=== PATIENT | female | born 1990 | race Caucasian/White ===

== ENCOUNTER → 2017-01-16 07:51 | Outpatient (CLI) | payer BC ==
[2013-09-08 14:57] VITALS: BMI 23.9
[~2017-01-16 07:51] MED LIST: AMBIEN5 MG PO; DONNATAL E16.2 MG/5 PO; NORCO 10/325 TA1 TA1 PO; PRILOSEC20 MG PO
== END | disposition home or self-care (01) ==
LOC: D.US 07:51
DX: R10.2 Pelvic and perineal pain (principal)

== ENCOUNTER 2017-03-03 16:45 | Emergency (ER) | payer BC ==
[2017-03-03 18:01] LABS: APPEARANCE CLEAR (CLEAR); BILIRUBIN NEGATIVE (NEGATIVE); COLOR YELLOW (YELLOW); GLUCOSE NEGATIVE (NEGATIVE); KETONE NEGATIVE (NEGATIVE); LEUKOCYTE ESTERASE NEGATIVE (NEGATIVE); NITRITE NEGATIVE (NEGATIVE); PROTEIN NEGATIVE (NEGATIVE); UROBILINOGEN NORMAL (NORMAL)
== END 2017-03-03 18:49 | disposition home or self-care (01) ==
LOC: D.ER
PROVIDERS: Physician Assistant Medical
DX: O26.892 Other specified pregnancy related conditions, second trimester (principal); Z3A.17 17 weeks gestation of pregnancy; R33.9 Retention of urine, unspecified; F17.200 Nicotine dependence, unspecified, uncomplicated; K58.9 Irritable bowel syndrome, unspecified

== ENCOUNTER 2017-05-27 15:30 | Day surgery (SDC) | payer BC ==
[2013-09-08 14:57] VITALS: BMI 23.9
[2017-05-27 13:29] LABS: APPEARANCE HAZY (CLEAR); BILIRUBIN NEGATIVE (NEGATIVE); COLOR YELLOW (YELLOW); GLUCOSE NEGATIVE (NEGATIVE); KETONE SMALL mg/dL (NEGATIVE); LEUKOCYTE ESTERASE TRACE (NEGATIVE); NITRITE NEGATIVE (NEGATIVE); PROTEIN NEGATIVE (NEGATIVE); SPECIFIC GRAVITY 1.025 (1.005-1.020); UROBILINOGEN NORMAL (NORMAL)
[2017-05-27 13:30] LABS: BACTERIA MODERATE /hpf (NONE SEEN); EPITHELIAL CELLS 0-5 /hpf (0-5); MUCUS >1+ /lpf (NONE SEEN); RED CELLS - URINE OCC /hpf (0-5); WHITE CELLS - URINE OCC /hpf (0-5)
[2017-05-27 13:31] LABS: TALC POWDER CRYSTALS RARE /hpf (NONE SEEN)
[2017-05-27 13:36] LABS: CALCIUM OXALATE CRYSTALS 0-5 /hpf (NONE SEEN)
[2017-05-27] MEDS ORDERED: AMBIEN10 MG PO (16:49)
[2017-05-27 18:14] LABS: BASOPHILS 0.2 % (0-2); EOSINOPHILS 3.2 % (0-7); HEMATOCRIT 31.8 % (36.0-48.0); HEMOGLOBIN 10.9 g/dL (12-16); IMMATURE GRANULOCYTES 0.6 % (0-5); LYMPHOCYTES 23.2 % (15-50); MCHC 34.3 g/dL (31.0-37.0); MCV 93.3 fL (80.0-100.0); MEAN PLATELET VOLUME 11.4 fL (7.4-10.4); MONOCYTES 7.7 % (2-11); NEUTROPHILS 65.1 % (40-80); RBC 3.41 10x6/uL (4.00-5.40); RDW 12.2 % (11.5-14.5); WBC 9.8 10x3/uL (4.8-10.8)
[2017-05-27 18:23] LABS: PLATELET COUNT 203 10x3/uL (130-400)
[2017-05-27 18:31] LABS: CALC OSMOLALITY 277 mosm/kg (275-300); CALCIUM 8.4 mg/dL (8.5-10.1); CHLORIDE - SERUM 107 mmol/L (98-107); CREATININE - SERUM 0.6 mg/dL (0.6-1.3); GLUCOSE 78 mg/dL (74-106); POTASSIUM - SERUM 3.7 mmol/L (3.5-5.1); SODIUM 141 mmol/L (136-145); UREA NITROGEN 7 mg/dL (7-18); eGFR NON AFRICAN AMERICAN > 90 mL/min (90-120)
--- NOTE | 2017-05-27 19:19 | NUR ---
ULTRASOUND USED INSTEAD OF X-RAY SINCE PATIENT 28WKS , RAMON.
--- NOTE | 2017-05-27 19:45 | NUR ---
PT ARRIVES TO LABOR AND DELIVERY ON STRETCHER WITH SURGERY STAFF. PT AMBULATES TO BR WITH NO ASSISTANCE.
== END 2017-05-27 20:35 | disposition home or self-care (01) ==
LOC: D.OPS 15:30 → D.LD 17:01 → D.OPS 20:35 → D.LD 20:53
PROVIDERS: Anesthesiology; Obstetrics & Gynecology
DX: O26.892 Other specified pregnancy related conditions, second trimester (principal); N13.30 Unspecified hydronephrosis; Z01.812 Encounter for preprocedural laboratory examination

== ENCOUNTER 2017-06-03 12:26 | Emergency (ER) | payer BC ==
[2013-09-08 14:57] VITALS: BMI 23.9
[~2017-06-03 12:26] MED LIST changes: +AMBIEN10 MG PO
[2017-06-03 13:23] LABS: APPEARANCE CLEAR (CLEAR); BACTERIA FEW /hpf (NONE SEEN); BILIRUBIN NEGATIVE (NEGATIVE); COLOR STRAW (YELLOW); EPITHELIAL CELLS 0-5 /hpf (0-5); GLUCOSE NEGATIVE (NEGATIVE); KETONE NEGATIVE (NEGATIVE); LEUKOCYTE ESTERASE TRACE (NEGATIVE); NITRITE NEGATIVE (NEGATIVE); PROTEIN NEGATIVE (NEGATIVE); UROBILINOGEN NORMAL (NORMAL); WHITE CELLS - URINE OCC /hpf (0-5)
[2017-06-03 14:11] LABS: BASOPHILS 0.2 % (0-2); EOSINOPHILS 4.8 % (0-7); HEMATOCRIT 31.4 % (36.0-48.0); HEMOGLOBIN 10.7 g/dL (12-16); IMMATURE GRANULOCYTES 1.1 % (0-5); LYMPHOCYTES 22.4 % (15-50); MCHC 34.1 g/dL (31.0-37.0); MEAN PLATELET VOLUME 11.8 fL (7.4-10.4); MONOCYTES 10.4 % (2-11); NEUTROPHILS 61.1 % (40-80); PLATELET COUNT 195 10x3/uL (130-400); RBC 3.34 10x6/uL (4.00-5.40); RDW 12.1 % (11.5-14.5); WBC 9.1 10x3/uL (4.8-10.8)
[2017-06-03 14:47] LABS: ALBUMIN 2.5 g/dL (3.4-5.0); ALKALINE PHOSPHATASE 71 U/L (46-116); ALT (SGPT) 21 U/L (10-68); BILIRUBIN - TOTAL 0.17 mg/dL (0.2-1.3); CALC OSMOLALITY 273 mosm/kg (275-300); CALCIUM 8.4 mg/dL (8.5-10.1); CARBON DIOXIDE 23.2 mmol/L (21.0-32.0); CHLORIDE - SERUM 106 mmol/L (98-107); CREATININE - SERUM 0.5 mg/dL (0.6-1.3); GLUCOSE 86 mg/dL (74-106); PROTEIN - SERUM 6.2 g/dL (6.4-8.2); SODIUM 138 mmol/L (136-145); UREA NITROGEN 9 mg/dL (7-18); eGFR NON AFRICAN AMERICAN > 90 mL/min (90-120)
== END 2017-06-03 16:37 | disposition home or self-care (01) ==
LOC: D.ER 12:26
PROVIDERS: Emergency Medicine
DX: R31.9 Hematuria, unspecified (principal); N23 Unspecified renal colic

== ENCOUNTER → 2017-06-20 02:51 | Outpatient (CLI) | payer BC ==
[2013-09-08 14:57] VITALS: BMI 23.9
== END ==
LOC: D.LDO 02:51
PROVIDERS: Obstetrics & Gynecology
DX: Z34.83 Encounter for supervision of other normal pregnancy, third trimester (principal); Z3A.31 31 weeks gestation of pregnancy

== ENCOUNTER → 2017-07-23 16:25 | Outpatient (CLI) | payer BC ==
[2013-09-08 14:57] VITALS: BMI 23.9
== END | disposition home or self-care (01) ==
LOC: D.LDO 16:25
DX: O36.8130 Decreased fetal movements, third trimester, not applicable or unspecified (principal); Z3A.35 35 weeks gestation of pregnancy

== ENCOUNTER 2017-07-31 05:32 | Inpatient (IN) | payer BC ==
[2017-07-31] VITALS (12 sets, daily range): BP systolic 104–133; BP diastolic 55–84; Ht 171.4 cm; Wt 67.3 kg
[~2017-07-31] VITALS: Ht 171.4 cm; Wt 67.3 kg
[2017-07-31 06:31] LABS: HEMATOCRIT 30.3 % (36.0-48.0); HEMOGLOBIN 10.3 g/dL (12-16); MCH 31.7 pg (26.0-34.0); MCV 93.2 fL (80.0-100.0); MEAN PLATELET VOLUME 11.6 fL (7.4-10.4); RBC 3.25 10x6/uL (4.00-5.40); RDW 12.5 % (11.5-14.5); WBC 11.2 10x3/uL (4.8-10.8)
[2017-07-31 07:17] LABS: APPEARANCE HAZY (CLEAR); BACTERIA MODERATE /hpf (NONE SEEN); BILIRUBIN NEGATIVE (NEGATIVE); COLOR YELLOW (YELLOW); EPITHELIAL CELLS 0-5 /hpf (0-5); GLUCOSE NEGATIVE (NEGATIVE); KETONE NEGATIVE (NEGATIVE); LEUKOCYTE ESTERASE TRACE (NEGATIVE); MUCUS <1+ /lpf (NONE SEEN); NITRITE NEGATIVE (NEGATIVE); PROTEIN NEGATIVE (NEGATIVE); RED CELLS - URINE 25-50 /hpf (0-5); UROBILINOGEN NORMAL (NORMAL); WHITE CELLS - URINE 0-5 /hpf (0-5)
--- NOTE | 2017-07-31 10:01 | NUR ---
RCVD PT FROM RECOVERY. PT RATES PAIN 5/10 AT THIS TIME, BUT PAIN IS "EXCRUCIATING" IF FUNDUS IS CHECKED. THERAPY MANAGER INITIATED AND TORADOL GIVEN PER ORDERS. SEE EMAR. CURRENT INFUSION ON PITOCIN COMPLETED, OLD BAG DOWN, NEW BAG UP TO PRESENT TUBING. 700ML CLEAR YELLOW URINE NOTED IN SUAREZ BAG. FUNDUS FIRM, ML, U/1. SCANT LOCHIA RUBRA ON PERIPAD. PADS CHANGED AT THIS TIME. VSS, SCD'S ON AND CONNECTED TO PUMP, PUMP FUNCTIONING PROPERLY. BREATH SOUNDS CLEAR & UNLABORED X2, BOWEL SOUNDS HYPOACTIVE X4. PT DENIES FURTHER NEEDS. WILL CONT TO MONITOR.
--- NOTE | 2017-07-31 11:00 | NUR ---
PAIN REASSESSMENT COMPLETE. PT REPORTS PAIN 5/10 STILL WITH LITTLE RELIEF. PT REPORTS USING CORPORATE DEVELOPMENT OFFICER BUTTON WHEN AVAILABLE. ICE CAP IS PLACED TO INCISIONAL AREA. PT DENIES FURTHER NEEDS AT THIS TIME. WILL CONT. TO MONITOR.
--- NOTE | 2017-07-31 11:38 | NUR ---
PT RINGS CL. RN TO BS. PT INQUIRING ABOUT COMING TO ROOM FOR A VISIT. ADV PT ON CALLING NBN TO CHECK ON INFANT UNTIL SHE IS ABLE AMB OR UNTIL INFANT IS ABLE TO COME TO ROOM. PT VERBALIZED UNDERSTANDING AND DENIES FURTHER NEEDS.
--- NOTE | 2017-07-31 12:28 | NUR ---
RN TO PT BS FOR ROUNDS. PT DENIES NEEDS AT THIS TIME. 1700 ML CLEAR YELLOW URINE EMPTIED FROM UROMETER. WILL CONT TO MONITOR.
--- NOTE | 2017-07-31 13:09 | NUR ---
ROUNDS MADE. PT REPORTS PAIN 7/10 AT THIS TIME. CONFIGURATION ANALYST BOLUS OF 0.4MG GIVEN AT THIS TIME FOR BREAKTHROUGH PAIN. PT DENIES FURTHER NEEDS.
--- NOTE | 2017-07-31 14:05 | NUR ---
pt rings call light and states she is unsure about bleeding. noted small lochia on towel. towel changed and susan pads placed.
--- NOTE | 2017-07-31 14:32 | NUR ---
PT C/O N/V. EMESIS BAG PROVIDED. ZOFRAN GIVEN PER ORDERS. SEE EMAR. PT ENCOURAGED TO DRINK FLUID AND EAT SOMETHING AT THIS TIME. BOWEL SOUNDS ASSESSED AND ARE ACTIVE X4. LEMON PALA SODA PROVIDED AND APPLE SAUCE. PT DENIES FURTHER NEEDS AT THIS TIME. WILL CONT POC.
[2017-07-31 15:04] LABS: BASOPHILS 0.2 % (0-2); HEMATOCRIT 30.4 % (36.0-48.0); HEMOGLOBIN 10.4 g/dL (12-16); IMMATURE GRANULOCYTES 0.4 % (0-5); LYMPHOCYTES 12.9 % (15-50); MCH 32.1 pg (26.0-34.0); MCHC 34.2 g/dL (31.0-37.0); MCV 93.8 fL (80.0-100.0); MEAN PLATELET VOLUME 11.6 fL (7.4-10.4); MONOCYTES 7.1 % (2-11); NEUTROPHILS 78.4 % (40-80); PLATELET COUNT 176 10x3/uL (130-400); RBC 3.24 10x6/uL (4.00-5.40); RDW 12.6 % (11.5-14.5); WBC 11.5 10x3/uL (4.8-10.8)
--- NOTE | 2017-07-31 15:33 | NUR ---
PT RINGS CL. RN TO BS. PT C/O 'BLOOD POURING OUT." SMALL LOCHIA RUBRA NOTED ON PERIPAD. PADS CHANGED, PT WIPES SELF WITH TISSUE. ICE CAP PLACED BACK @ INCISION SITE. PT DENIES FURTHER NEEDS AT THIS TIME AND REPORT NAUSEA IS BETTER.
--- NOTE | 2017-07-31 16:16 | NUR ---
PT GIVEN TORADOL AND PHENERGAN PER ORDERS. SEE EMAR. PERIPADS CHANGED AT THIS TIME. PT POSITIONS SELF TO LEFT SIDE. DENIES FURTHER NEEDS. WILL CONT POC.
--- NOTE | 2017-07-31 17:01 | NUR ---
PAIN REASSESSMENT COMPLETE. PT RATES PAIN 3/10 AND TOLERABLE AT THIS TIME. PT REPORTS NAUSEA FEELS A LITTLE BETTER. PT HAS REPOSITIONED SELF TO RT SIDE AT THIS TIME AND DENIES FURTHER NEEDS.
--- NOTE | 2017-07-31 17:58 | NUR ---
CURRENT INFUSION OF NS WITH 20 U PITOCIN COMPLETE. OLD BAG DOWN, NEW BAG UP TO PRESENT TUBING INFUSING @ 125ML/HR VIA ALARIS PUMP THROUGH PIV IN LT WRIST.
--- NOTE | 2017-07-31 18:07 | NUR ---
400ML CLEAR YELLOW URINE EMPTIED FROM SUAREZ BAG AT THIS TIME. FUNDUS FIRMED WITH MASSAGE, NO CLOTS NOTED. PERIPADS CHANGED AT THIS TIME. NEW CHUCKS AND TOWELS DOWN. PT PRESSES FINGER LIFT OPERATOR BUTTON AT THIS TIME AND DENIES FURTHER NEEDS. FAMILY AND FRIENDS IN ROOM FOR SUPPORT.
--- NOTE | 2017-07-31 18:41 | NUR ---
PT RINGS CL. THIS RN TO BEDSIDE. PT C/O BLEEDING. SMALL LOCHIA RUBRA NOTED ON PERIPAD. PADS CHANGED. PT EDU ON BOGGY VS FIRM FUNDUS. PT VERBALIZED UNDERSTANDING AND STATES "OK I FEEL BETTER ABOUT IT NOW." PT DENIES FURTHER NEEDS.
--- NOTE | 2017-07-31 20:00 | NUR ---
REC'D PT AA &O X 4 IN LOW GOODWIN'S POSITION. PIV TO LEFT FOREARM W/18 GUAGE CATH. 20 UNITS PITOCIN INFUSING AT 125ML/HR. DILAUDID SEED SPECIALIST IN PLACE. BREATHSOUNDS CL\=, ABD SOFT, NON DISTENDED. FUNDUS FIRM,U/1, SMALL LOCHIA NOTED. NO CLOTS EXPRESS W/MASSAGE. LOW TRANSVERSE INCISION W/LARGE ABD DRESSING IN PLACE. C/D. NO DRAINAGE NOTED. SUAREZ CATH IN PLACE. DRAINING VIA GRAVITY AT BEDSIDE. APPROX 350ML URINE NOTED IN UROMETER. SCD WRAPS ON BILATERALLY. CONNECTED TO PUMP. PUMP IS ON AND FUNCTIONING. PEDAL PULSES PRESENT X 2. NO LOWER EDEMA NOTED. PT REPORTS DILAUDID SEED SPECIALIST IS CONTROLLING HER PAIN AT A TOLERABLE LEVEL. PT DENIES NEEDING FURTHER PAIN INTERVENTIONS AT THIS TIME.PT QUESTIONING WHEN SHE WILL BE ABLE TO GET OOB AND GO TO THE NURSEERY TO SEE HER . PT INFORMED 12HR POST OP ORDERS WILL NEED TO BE OBTAINED AND THEN SHE WILL BE ABLE TO. PT VERBALIZES UNDERSTANDING AND IS AGREEABLE TO POC. NO NEEDS VOICED AT THIS TIME. PT'S MOTHER IN ROOM W/PT. BED LOW,SEED SPECIALIST BUTTON, CALL LIGHT AND PHONE AT PT'S SIDE.
--- NOTE | 2017-07-31 20:15 | NUR ---
DR RAMOS CALLS UNIT REQUESTING REPORT ON PT'S CURRENTLY PRESENT ON L&D. REPORT GIVEN. 12 HR POSTOP ORDERS REC'D FOR THIS PT.
--- NOTE | 2017-07-31 20:45 | NUR ---
THIS RN TO BEDSIDE. PT'S SUAREZ CATH REMOVED IN TACT W/400ML URINE NOTED. PERICARE PERFORMED. 2 PERIPADS PROVIDED. PT ASSISTED W/PUTTING HER OWN PANTIES AND CLOTHES ON SO SHE MAY TRANSPORTED TO [facility]. DILAUDID ACCOUNT DIRECTOR DISCONTINUED. PT SALINE LOCKED. NORCO 10/325MG ONE TAB GIVEN.SCD WRAPS REMOVED. PT OOB PER SELF AND TRANSFERS TO W/C. PT AND HER MOTHER TAKEN TO N SO PT MAY SHE HER . PT CURRENT RATES HER PAIN W/MOVEMENT 5/10.
--- NOTE | 2017-07-31 21:45 | NUR ---
PT AND HER MOTHER HAVE ARRIVED TO [id number]. PT CURRENTLY AMBULATING IN ROOM. PT INSTRUCTED TO REMAIN SEATED WHILE HER PERSONAL ITEMS ARE TRANFERED PER THIS RN AND HER MOTHER TO HER NEW ROOM. PT SITS ON SOFA UNTIL THIS RN AND HER MOTHER RETURNS TO ROOM. PAIN AND NEEDS ASSESSED. PT CURRENTLY REPORTS PAIN 3-4/10. NO FURTHER PAIN INTERVENTIONS REQUESTED AT THIS TIME. ROOM STOCKED. FRESH ICE WATER IN [facility] MUG, CRACKERS/COOKIE SNACKS W/MEAL TICKET PROVIDED. PT INSTRUCTED TO COLLECT THE NEXT 3 VOIDS IN NUNS CAP PROVIDED. PT IS AGREEABLE. PT INFORMED THAT SCD WRAPS REMAIN OFF UNTIL SHE READY TO BE IN BED FOR THE NIGHT, THEN MD REQUEST PT CONTINUE TO HAVE THEM ON WHILE IN BED. PT IS AGREEABLE. PILLOWS/BLANKETS PROVIDED FOR PT'S MOTHER. NO FURTHER NEEDS VOICED AT THIS TIME. BED LOW,CALL LIGHT AND PHONE AT PT'S SIDE. SIDE RAILS UP X 1.
--- NOTE | 2017-07-31 23:00 | NUR ---
PT'S MOTHER TO NURSING DESK. REPORTS PT IS C/O PAIN AND REQUESTING A CAP. THIS RN TO BEDSIDE. 3RD DOSE TORADOL 30ML DILUTED IN 5ML NS GIVEN. SALINE LOCK FLUSHED. FRESH ICE CAP PROVIDED. SCD WRAPS PLACED ON PT BILATERALLY. CONNECTED TO PUMP. PUMP IS ON AND FUNCTIONING. FRESH ICE WATER SERVED. PT REPORTS SHE HAS SPOKE WITH DR MONTIEL ABOUT DR FORTUNE REMOVING HER STENT WHILE SHE IS HERE IN THE HOSPITAL. PT QUESTIONS IF THIS RN HAS IN KNOWLEGE OF THIS. PT INFORMED THAT REPORT WAS RECEIVED OF SUCH AND NO CONSULT ORDER HAS BEEN PLACED OF YET. PT ENCOURAGED TO SPEAK W/DR MONTIEL IN THE AM. PT REPORTS SHE IS GOING TO MAKE HERSELF NPO AFTER MIDNIGHT JUST IN CASE DR FORTUNE AND DR MONTIEL WILL AGREE TO THE REMOVAL IN THE AM. V/S OBTAINED. SEE FLOWSHEET. PT REPORTS SHE HAS VOIDED ONCE. APPROX 150ML NOTED IN NUNS CAP. PT VERBALIZES SHE KNOWS TO COLLECT URINE 2 MORE TIMES TO REPORT. NO FURTHER NEEDS VOICED AT THIS TIME. PT PLANS TO REST NOW. CALL LIGHT AND PHONE AT PT'S SIDE. MOTHER TO STAY WITH PT THIS EVENING.
--- NOTE | 2017-08-01 00:04 | NUR ---
PAIN REASSESSED TO FACE SCALE. PT RESTING QUIETLY W/EYES CLOSED. RESP EVEN AND UNLABORED. PT LEFT UNDISTURBED AT THIS TIME.
--- NOTE | 2017-08-01 02:00 | NUR ---
ROUNDS MADE. PT LYING IN SUPINE POSITION W/EYES CLOSED. RESP REG AND UNLABORED. PT LEFT UNDISTURBED AT THIS TIME.
--- NOTE | 2017-08-01 03:00 | NUR ---
THIS RN TO PT ROOM TO AWAKEN HER TO GET UP TO VOID. NORCO 10/325MG ONE TAB TAKEN TO ROOM TO OFFER PT. PT AWAKENS EASILY. POC DISCUSSED W/PT. PT VERBALIZES UNDERSTANDING AND IS AGREEABLE. NORCO 10/325MG ONE ADMINISTERED (MED NOT SCANNED DUE TO MOBILE COMPUTER DOWN AND COMPUTER IN ROOM NO FUCTIONING.) DOCUMENTATED SUCH IS ZapnipR. PT'S SCD WRAPS DISCONNECTED FROM PUMP, BUT REMAIN ON PT'S LEGS.PT OOB PER SELF. AMBULATES TO BR W/OUT ASSISTANCE. ABLE TO VOID 700ML URINE. 2 SMALL CLOTS NOTED. PT PERFORMS SELF PERICARE. AMBULATORY BACK TO BED PER SELF. SCD WRAPS RECONNECTED TO PUMP. PT REMAINS ON AND FUNCTIONING. V/S OBTAINED. SEE FLOWSHEET. EXTRA PILLOW PROVIDED FOR PT. PT UPDATED ON STATUS. NO FURTHER NEEDS VOICED AT THIS TIME.
[2017-08-01 03:30] VITALS: BP 123/66
--- NOTE | 2017-08-01 04:00 | NUR ---
ROUNDS MADE. PT RESTING QUIETLY W/EYES CLOSED IN HIGH GOODWIN'S. APPEARS TO BE SLEEPING. RESP REG AND UNLABORED. PT LEFT UNDISTURBED AT THIS TIME. PAIN REASSESSED USING FACE SCALE, 0/10.
--- NOTE | 2017-08-01 05:35 | NUR ---
LAB TO ROOM FOR MORNING DRAW.
[2017-08-01 05:46] LABS: BASOPHILS 0.1 % (0-2); HEMATOCRIT 24.7 % (36.0-48.0); HEMOGLOBIN 8.4 g/dL (12-16); IMMATURE GRANULOCYTES 0.3 % (0-5); MCH 32.1 pg (26.0-34.0); MCV 94.3 fL (80.0-100.0); MEAN PLATELET VOLUME 10.7 fL (7.4-10.4); MONOCYTES 10.9 % (2-11); NEUTROPHILS 65.7 % (40-80); PLATELET COUNT 136 10x3/uL (130-400); RBC 2.62 10x6/uL (4.00-5.40); RDW 12.7 % (11.5-14.5); WBC 9.3 10x3/uL (4.8-10.8)
--- NOTE | 2017-08-01 06:15 | NUR ---
PT RINGS CALL LIGHT. THIS RN TO BEDSIDE. PT SITTING UP ON SIDE OF BED. REPORTS SHE HAS LEFT SIDED INCISION BURNING. PT INFORMED BURNING IS A COMMON COMPLAINT. ICE CAP AND MOTRIN OFFERED. PT DECLINES ICE CAP. STATING SHE IS WANTING TO GO TO THE NURSERY. PT REPORTS SHE HAS VOIDED AGAIN. APPROX 450ML URINE NOTED IN NUNS CAP. W/C PROVIDED TO TRANSPORT PT TO [facility]. MOTRIN 600MG PO GIVEN AND SCANNED IN [facility] COMPUTER. PT INFORMED THAT SHE MAY HAVE NORCO 10/325MG AGAIN AT 0700. WILL REPORT TO DAYSHIFT OF PT'S REQUEST FOR PAIN MEDICATION AT THAT TIME. SPOUSE IN NURSERY W/MOM AND BABY AT THIS TIME.
--- NOTE | 2017-08-01 07:00 | NUR ---
REPORT GIVEN TO ON COMING DAYSHIFT.
[2017-08-01 07:25] LABS: RAPID PLASMA REAGIN Non Reactive (Non Reactive)
--- NOTE | 2017-08-01 08:45 | NUR ---
DR. MONTIEL ON UNIT, TO ROOM SPEAKING WITH PT. WANTS TO KNOW IF DR. FORTUNE CAN TAKE PT'S STENT OUT TODAY. CALL MADE TO DR. FORTUNE, AND HE STATES HE CAN DO THIS LATER THIS AFTERNOON AFTER HIS CLINIC. SURGERY NOTIFIED. CONSENT OBTAINED FROM PT FOR CYSTOSCOPY WITH STENT REMOVAL. PT AGREES, AND IS NPO AFTER MIDNIGHT. PT DENIES QUESTIONS. PT OUT OF ROOM WITH FRIEND, PT IN WHEELCHAIR. DENIES OTHER NEEDS AT THIS TIME.
--- NOTE | 2017-08-01 11:22 | NUR ---
PERCOCET 10 MG ONE PO GIVEN WITH SIP OF WATER. MEDICATION SCHEDULE REVIEWED WITH PT. PT DENIES NEEDS AT THIS TIME. SR UP X 2, CALL LIGHT AND PHONE WITHIN REACH.
--- NOTE | 2017-08-01 11:30 | NUR ---
PT HAS PLACED WHITE DRESSING OVER INCISION, C/D/I. STATES GLUE IS INTACT NO REDNESS OR SWELLING TO SITE. DR. MONTIEL REMOVED ORIGINAL DRESSING, WITH INCISION NOTED BY . SL FLUSED WITH 10 ML'S NS WITHOUT PAIN, REDNESS OR SWELLING TO IV SITE. PT DENIES OTHER NEEDS AT THIS TIME. PT IS AMBULATORY IN ROOM. FAMILY AND FRIENDS AT BEDSIDE.
--- NOTE | 2017-08-01 11:45 | NUR ---
OR STAFF HERE TO GET PT. UNIT WAS NOT NOTIFIED OF OR'S ARRIVAL FOR PROCEDURE. ORDERS NOTED FOR IV PEPCID AND IV REGLAN.
--- NOTE | 2017-08-01 12:00 | NUR ---
SURGERY CHECKLIST COMPLETED. PT TAKEN TO OR BY STRETCHER WITH OR STAFF. CLAY IN SURGERY NOTIFIED THAT PT'S IV HAS INFILTRATED WHILE ATTEMPTING TO PUSH IV PEPCID. PT HAS SCD'S ON, AND MESH PANTIES ON. WILL PLACE SUAREZ/RED RUBBER IN OR. CLAY AGREES.
--- NOTE | 2017-08-01 13:30 | NUR ---
PT RETURNED FROM RECOVERY. MOVED SELF TO BED. ABD SOFT. INCREASED DISCOMFORT WITH MOVEMENT. WILL CHECK ON PAIN MED. RECEIVED DILAUDID IN RECOVERY PER HX.
[2017-08-01 13:35] VITALS: BP 134/72
--- NOTE | 2017-08-01 13:38 | NUR ---
NOTED PAIN MED NOT SCHEDULED UNTIL 1500. PT STATES SHE WILL BE ALRIGHT TO WAIT.
--- NOTE | 2017-08-01 14:13 | NUR ---
IV D/C'S IV NOT FUNCTIONING.. REMOVED IV CATH INTACT.
--- NOTE | 2017-08-01 14:56 | NUR ---
PT UP AND ABOUT IN ROOM. PAIN AT INCISION SITE. MED REQUESTED AND GIVEN
--- NOTE | 2017-08-01 15:29 | OP ---
PATIENT NAME: ROMA PATRICIA MEDICAL RECORD: [id number] :88 LOCATION:[id number] ADMISSION DATE:07/31/17 SURGEON: NESSA FORTUNE MD DATE OF OPERATION: 08/01/2017 SURGEON: Nessa Fortune MD ANESTHESIA: MAC by Poornima Vee CRNA. PREOPERATIVE DIAGNOSIS: Retained right ureteral stent. POSTOPERATIVE DIAGNOSIS: Retained right ureteral stent. PROCEDURES: Cystoscopy, right ureteral stent removal. SPECIMENS: Right ureteral stent. COMPLICATIONS: None. ESTIMATED BLOOD LOSS: None. CLINICAL HISTORY: This is a 27-year-old female, who during her second developed right hydronephrosis with extreme right flank pain. She had a right ureteral stent inserted for the duration of her . She has delivered her baby yesterday and now she comes to have the stent removed. She is not allergic to any medications and she was given Ancef 1 gram IV radiation therapy technician to the OR. DESCRIPTION OF PROCEDURE: The patient was given IV sedation. She was placed in the dorsal lithotomy position, prepped and draped. A 21-Hungarian cystoscope with 30-degree lens was used for visualization. The stent was seen and grasping forceps were used to entirely remove the stent. The stent was sent to pathology for identification. TRANSINT:[id number] Voice Confirmation ID: [id number] DOCUMENT ID: [id number] NESSA FORTUNE MD at 1529 CC: [id number] DICTATION DATE: 08/01/17 1239 PRESS TENDER SHORT GOODS: 08/01/17 1408 [place] [address]
--- NOTE | 2017-08-01 17:30 | NUR ---
REGULAR SUPPER TRAY SERVED TO PT. PT SITTING UP IN BEDSIDE CHAIR, WITH SIG OTHER AT BEDSIDE HOLDING . PT DENIES NEEDS AT THIS TIME.
--- NOTE | 2017-08-01 18:30 | NUR ---
REPORTS POSS" BLADDER SPASMS" AFTER STENT REMOVAL TODAY. ALSO INCISIONAL PAIN. REPORTS SCANT BLEEDING ON TEJAS-PAD. NO CLOTS NOTED.
--- NOTE | 2017-08-01 19:26 | NUR ---
VISITORS AT BEDSIDE. IN ROOM.
--- NOTE | 2017-08-01 20:05 | NUR ---
INFANT RETURNED TO [facility] PER NURSERY STAFF FOR ANTIBIOTIC TREATMENT. PT. CURRENTLY NOT IN ROOM.
[2017-08-01 20:25] VITALS: BP 136/83
--- NOTE | 2017-08-01 20:25 | NUR ---
PT. UP TO BATHROOM. BACK TO SITTING IN RECLINER. STATES SHE IS MORE COMFORTABLE IN RECLINER UNTIL READY TO SLEEP. BREATH SOUNDS CLEAR AND BOWEL SOUNDS AUDIBLE. LOCHIA RUBRA SCANT. PT. REPORTING LOWER ABD. CRAMPING. EXPLAINED THAT SHE COULD BE FEELING UTERINE CRAMPING. PT. REPORTS PASSING FLATUS. ABD. DRESSING DRY AND INTACT. PT. RATES PAIN A 3 OF 10 ON PAIN SCALE. DENIES ANY PAIN IN LOWER EXTREMITIES. FOB LYING ON SOFA. PT. DENIES ANY NEEDS AT THIS TIME.
--- NOTE | 2017-08-01 21:13 | NUR ---
AMBULATORY IN L&D UNIT. CHEERFUL AND DENIES ANY NEEDS. GAIT STEADY.
--- NOTE | 2017-08-01 22:39 | NUR ---
SITTING IN CHAIR HOLDING . C/O ABD. CRAMPING THAT SHE RATES A 6 OF 10 ON PAIN SCALE. PAIN MED. GIVEN ORDERED. FOB SLEEPING ON SOFA.
[2017-08-01 23:10] VITALS: BP 125/69
--- NOTE | 2017-08-01 23:10 | NUR ---
PT. PRESENTLY LYING IN BED. STATES PAIN IS STILL CRAMPING AND STILL ABOUT THE SAME ON THE PAIN SCALE BUT SHE FEELS MED WILL "KICK iN" SOON. INFANT IN OPEN CRIB AT BEDSIDE. PT. CURRENTLY WATCHING TV. VITAL SIGNS OBTAINED.
--- NOTE | 2017-08-02 00:16 | NUR ---
PT. ASLEEP BUT AROUSES TO NOISE IN ROOM. RATES PAIN A 4 OF 10 ON PAIN SCALE. IN OPEN CRIB AT BEDSIDE.
--- NOTE | 2017-08-02 01:50 | NUR ---
PT. LYING WITH EYES CLOSED. STARTS CRYING AND PT. AWAKENS BRIEFLY. THIS NURSE PLACED PACIFIER IN MOUTH AND QUIETS. PT. SLEEPING INTERMITTENTLY. REMAINS IN OPEN CRIB AT BEDSIDE.
--- NOTE | 2017-08-02 03:39 | NUR ---
LYING ON BACK WITH EYES CLOSED. RESPIRATIONS REGULAR. FOB SLEEPING ON SOFA.
--- NOTE | 2017-08-02 04:46 | NUR ---
RN CALLED TO PT BS WITH C/O PAIN, RATES 05/26, REQUESTS MEDICATION. 1 TAB PERCOCET 10 PROVIDED TO PT AT THIS TIME. PT DENIES ANY FURTHER NEEDS. SO AT PT BS FOR SUPPORT AND ASSISTANCE. REMAINS AT PT BS FOR COUPLET CARE. BED IN LOW POSITION, SIDE RAILS UP TIMES 2, CALL LIGHT AND PHONE IN REACH. WILL CONT TO MONITOR PT STATUS.
--- NOTE | 2017-08-02 05:20 | NUR ---
INTO PT. ROOM FOR PAIN REASSESSMENT. FOB ON SOFA HOLDING INFANT. REPORTS "SHE WENT FOR A SHORT WALK". THIS NURSE WENT CHECKING IN FRONT OF NURSERY WINDOW, WAITING AREA AND BACK TO L&D UNIT. PT. WAS NOT SEEN. CURRENTLY OFF UNIT.
--- NOTE | 2017-08-02 05:44 | NUR ---
PT. AMBULATORY TO DESK IN L&D. REPORTS PAIN SCORE OF 3 OF 10. STATES SHE IS PLANNING TO SHOWER. DENIES ANY NEED FOR FURTHER LINENS STATING THAT SHE HAS ALREADY SECURED.
--- NOTE | 2017-08-02 06:06 | NUR ---
CONTINUES TO AMBULATE IN HALLWAY. ASKING NBN NURSE ABOUT INFANT'S EATING. STATES SHE CAN NOT GET HIM AWAKE. NBN NURSE TO PT. ROOM TO ASSIST PT. WITH FEEDING.
[2017-08-02 08:10] VITALS: BP 129/83
--- NOTE | 2017-08-02 08:10 | NUR ---
ASSESSMENT DONE. SITTING UP IN BEDSIDE CHAIR. STATES THAT HAS SOME PAIN AT INCISION SITE AND CRAMPING - STATES WOULD LIKE PAIN MEDICATION WHEN TIME IS APPRO. BREATH SOUNDS - SOME WHEEZING NOTED BUT CLEAR AFTER PT COUGHS. ABD SOFT WITH BOWEL SOUNDS PRESENT. ABD INCISION -APPEARANCE WNL. FUNDUS FIRM. SCANT LOCHIA NOTED ON PAD.
--- NOTE | 2017-08-02 08:59 | NUR ---
UP WALKING IN HALLWAY. STATES WILL SHOWER SOON -DENIES NEEDING SUPPLIES. LINENS CHANGED.
[2017-08-02 11:00] VITALS: BP 129/81
--- NOTE | 2017-08-02 11:00 | NUR ---
entered room. pt resting in bed with infant. pt states has a headache but does not want pain medication at this time. vs done
--- NOTE | 2017-08-02 13:01 | NUR ---
RESTING IN BED WITH . REQUESTING PAIN MEDICATION. STATES THAT HEADACHE PAIN IS A 7 AND INCISION PAIN IS A 6. PT STATES THAT SHE HOPE THIS PAIN MED WILL ELIMINATE HEADACHE BUT WILL CALL FOR IBUPROFEN IF THIS DOES NOT HELP. DENIES OTHER NEEDS.
--- NOTE | 2017-08-02 14:10 | NUR ---
PT PRESENTS TO DESK, IS TEARFUL, AND ASKING FOR THE NURSERY CODE TO GET IN. PT TAKEN INTO NURSERY, WITH More GUERRERO RN ATTENDING TO . MOTHER AND FAMILY WAITING IN [facility] AT THIS TIME.
--- NOTE | 2017-08-02 15:05 | NUR ---
CALL MADE TO DR. MONTIEL, REQUEST FOR DISCHARGE ORDER FOR PT, PT WANTS TO BE DISCHARGED WITH INFANT TO [facility]. TELEPHONE ORDER RECEIVED TO DISCHARGE PT HOME. PT INFORMED.
[2017-08-02] MEDS ORDERED: PERCOCET 10/3251 TA1 PO (15:11)
[2017-08-02] MEDS ORDERED: IBUPROFEN600 MG PO (15:12)
--- NOTE | 2017-08-02 16:14 | NUR ---
PT REQUESTS PERCOCET NOW, EXPLAINS THAT SHE WON'T HAVE TIME TO GET PRESCRIPTION FILLED UNTIL LATER, AND WITH INFANT BEING TRANSFERRED TO [facility], SHE WOULD LIKE ONE JUST A LITTLE EARLY. SEE EMAR FOR ALL MEDS ADM BY THIS RN.
--- NOTE | 2017-08-02 16:15 | NUR ---
DISCHARGE INSTRUCTIONS EXPLAINED TO PT, WITH COPIES OF INSTRUCTIONS, PP INFORMATION SHEET, AND PRESCRIPTION GIVEN FOR PERCOCET AND IBUPROFEN. PT DENIES QUESTIONS, STATES SHE IS READY TO BE DISCHARGED, SHE IS GOING TO LR WITH INFANT, PT STATES "THEY ARE GOING TO LET ME FLY WITH HIM". PT BACK TO [facility] WITH AND TRANSPORT TEAM.
== END 2017-08-02 16:30 | disposition home or self-care (01) | DRG 766 ==
LOC: D.LD 05:32
PROVIDERS: Urology; ADMIT Obstetrics & Gynecology
PROC: 0UB70ZZ Excision of Bilateral Fallopian Tubes, Open Approach (ICD-10-PCS; 2017-08-01)
PROC: 0TP98DZ Removal of Intraluminal Device from Ureter, Via Natural or Artificial Opening Endoscopic (ICD-10-PCS; 2017-08-01)
PROC: 10D00Z1 Extraction of Products of Conception, Low, Open Approach (ICD-10-PCS; principal; 2017-08-01 12:00)
DX: O99.824 Streptococcus B carrier state complicating childbirth (principal); Z3A.37 37 weeks gestation of pregnancy; Z37.0 Single live birth; O34.219 Maternal care for unspecified type scar from previous cesarean delivery; Z87.891 Personal history of nicotine dependence; O75.89 Other specified complications of labor and delivery

== ENCOUNTER 2018-03-05 06:20 | Day surgery (SDC) | payer BC ==
[2018-03-04 14:14] LABS: BASOPHILS 0.5 % (0-2); EOSINOPHILS 1.6 % (0-7); HEMATOCRIT 40.4 % (36.0-48.0); HEMOGLOBIN 13.6 g/dL (12-16); IMMATURE GRANULOCYTES 0.4 % (0-5); LYMPHOCYTES 16.3 % (15-50); MCH 31.9 pg (26.0-34.0); MCHC 33.7 g/dL (31.0-37.0); MCV 94.8 fL (80.0-100.0); MEAN PLATELET VOLUME 11.1 fL (7.4-10.4); MONOCYTES 7.1 % (2-11); NEUTROPHILS 74.1 % (40-80); RBC 4.26 10x6/uL (4.00-5.40); RDW 12.8 % (11.5-14.5); WBC 10.1 10x3/uL (4.8-10.8)
[2018-03-04 14:16] LABS: PLATELET COUNT 364 10x3/uL (130-400)
[~2018-03-05] VITALS: Ht 170.2 cm; Wt 59.9 kg
--- NOTE | ~2018-03-05 | OP ---
PATIENT NAME: ROMA PATRICIA MEDICAL RECORD: [id number] :88 [facility] AD[facility] DATE: SURGEON: MIS MOELLER MD DATE OF OPERATION: 03/05/2018 PREOPERATIVE DIAGNOSIS: Menorrhagia. POSTOPERATIVE DIAGNOSIS: Menorrhagia. PROCEDURE: Hysteroscopy and endometrial ablation using the NovaSure. SURGEON: Mis Moeller MD ESTIMATED BLOOD LOSS: Minimal. ANESTHESIA: General. INTRAVENOUS FLUIDS: Per anesthesia record. FINDINGS: Grossly normal-appearing endometrial cavity, cervix, and vagina. SPECIMENS: None. COMPLICATIONS: None apparent. DESCRIPTION OF PROCEDURE: The patient was taken to the operating room, where general anesthesia was achieved without difficulty. The patient was then prepped and draped in normal sterile fashion in the dorsal lithotomy position in the [facility]. SCDs were on and functioning normally. At this point, the bladder was drained of approximately 100 cc of clear yellow urine. A speculum was then placed into the vagina, and the cervix was identified and grasped on its anterior lip with a single-tooth tenaculum. The uterus sounded to approximately 8.5 cm. At this point, the uterus was dilated to approximately 5 mm and the hysteroscope was placed into the intrauterine cavity under direct visualization. Following removal of the hysteroscope, the cervix was further dilated to 8 mm. At this point, the NovaSure device was calibrated, found to be functioning normally. The functional depth for the NovaSure was found to be approximately 5.5 cm. The NovaSure was placed into the uterine cavity without resistance and was deployed per the NovaSure protocol. The pretest was performed and passed. The vacuum check was performed and passed, and the ablation was performed for approximately 90 seconds without complication. Following the end of the cycle, the NovaSure device was removed using the bow and arrow technique, and no bleeding was noted from the cervical os. The tenaculum was removed, and a small amount of bleeding from the external cervical os was stopped using a silver nitrate stick. The patient tolerated the procedure well, was transferred to the postanesthesia recovery stable without incident. TRANSINT:[id number] Voice Confirmation ID: [id number] DOCUMENT ID: [id number] OPERATIVE REPORT [id number] ROMA PATRICIA MIS MOELLER MD at 1614 CC: [id number] DICTATION DATE: 03/14/1806 AUTOMOTIVE FLEET SUPERVISOR: 03/14/18 0801 [facility] SDC 03/05/18 [id number] [place] [address]
[~2018-03-05 06:20] MED LIST changes: +IBUPROFEN600 MG PO; +PERCOCET 10/3251 TA1 PO
[2018-03-05 07:36] VITALS: BP 132/80; Ht 170.2 cm; Wt 59.9 kg
[2018-03-05 17:20] VITALS: BP 147/71
[2018-03-05 18:18] VITALS: BP 134/74
== END 2018-03-05 19:15 | disposition home or self-care (01) ==
LOC: D.OPS 06:20 → D.LD 06:20 → D.PAN 08:30 → D.OPS 08:30 → D.LD 17:21 → D.OPS 19:15
PROVIDERS: Obstetrics & Gynecology
DX: N92.0 Excessive and frequent menstruation with regular cycle (principal); I10 Essential (primary) hypertension; Z87.891 Personal history of nicotine dependence; Z01.812 Encounter for preprocedural laboratory examination

== ENCOUNTER 2018-06-18 07:47 | Emergency (ER) | payer BC ==
[~2018-06-18] VITALS: Ht 170.2 cm; Wt 59.1 kg
[2018-06-18 07:49] VITALS: Ht 170.2 cm; Wt 59.1 kg
[2018-06-18] MEDS ORDERED: ADDERALL 10 MG10 MG PO (07:53)
[2018-06-18] MEDS ORDERED: NAPROSYN500 MG PO (09:19)
[2018-06-18] MEDS ORDERED: HYDROCODON-ACE1 EAC7 PO (09:19)
[2018-06-18 09:58] VITALS: BP 140/85
== END 2018-06-18 09:59 | disposition home or self-care (01) ==
LOC: D.ER 07:47
DX: S16.1XXA Strain of muscle, fascia and tendon at neck level, initial encounter (principal); V49.9XXA Car occupant (driver) (passenger) injured in unspecified traffic accident, initial encounter; Y93.89 Activity, other specified; Y92.410 Unspecified street and highway as the place of occurrence of the external cause; S06.0X9A Concussion with loss of consciousness of unspecified duration, initial encounter; M25.512 Pain in left shoulder; M54.2 Cervicalgia; M25.561 Pain in right knee; F90.9 Attention-deficit hyperactivity disorder, unspecified type; F17.200 Nicotine dependence, unspecified, uncomplicated

== ENCOUNTER 2019-09-30 10:29 | Emergency (ER) | payer OTHER ==
[~2019-09-30] VITALS: Ht 170.2 cm; Wt 56.8 kg
[~2019-09-30 10:29] MED LIST changes: +ADDERALL 10 MG10 MG PO; +HYDROCODON-ACE1 EAC7 PO; +NAPROSYN500 MG PO
[2019-09-30 10:35] VITALS: Ht 170.2 cm; Wt 56.8 kg
[2019-09-30 11:07] LABS: CALC OSMOLALITY 273 mosm/kg (275-300); CALCIUM 8.5 mg/dL (8.5-10.1); CARBON DIOXIDE 28.1 mmol/L (21.0-32.0); CHLORIDE - SERUM 103 mmol/L (98-107); CREATININE - SERUM 0.8 mg/dL (0.6-1.3); GLUCOSE 88 mg/dL (74-106); POTASSIUM - SERUM 3.2 mmol/L (3.5-5.1); SODIUM 138 mmol/L (136-145); UREA NITROGEN 11 mg/dL (7-18); eGFR NON AFRICAN AMERICAN 89 mL/min (90-120)
[2019-09-30 11:14] LABS: EOSINOPHILS 1.8 % (0-7); HEMOGLOBIN 12.7 g/dL (12-16); IMMATURE GRANULOCYTES 0.2 % (0-5); MCH 31.7 pg (26.0-34.0); MCHC 33.4 g/dL (31.0-37.0); MCV 94.8 fL (80.0-100.0); MEAN PLATELET VOLUME 11.1 fL (7.4-10.4); RBC 4.01 10x6/uL (4.00-5.40); RDW 11.9 % (11.5-14.5)
[2019-09-30 11:19] LABS: ALBUMIN 3.8 g/dL (3.4-5.0); ALKALINE PHOSPHATASE 49 U/L (46-116); ALT (SGPT) 28 U/L (10-68); AMYLASE - SERUM 32 U/L (25-115); BILIRUBIN - TOTAL 0.72 mg/dL (0.2-1.3); LIPASE 72 U/L (73-393); PROTEIN - SERUM 6.8 g/dL (6.4-8.2); TROPONIN-I < 0.017 ng/mL (0.000-0.060)
[2019-09-30 11:24] LABS: PLATELET COUNT 239 10x3/uL (130-400)
[2019-09-30 11:26] LABS: APPEARANCE CLEAR (CLEAR); BILIRUBIN NEGATIVE (NEGATIVE); COLOR YELLOW (YELLOW); GLUCOSE NEGATIVE (NEGATIVE); KETONE NEGATIVE (NEGATIVE); NITRITE NEGATIVE (NEGATIVE); PROTEIN NEGATIVE (NEGATIVE); UROBILINOGEN NORMAL (NORMAL)
[2019-09-30 12:17] LABS: HCG SERUM NEGATIVE (NEGATIVE)
[2019-09-30] MEDS ORDERED: FLAGYL500 MG PO (13:34)
[2019-09-30] MEDS ORDERED: ZOFRAN ODT4 MG/UDTAB PO (13:34)
[2019-09-30] MEDS ORDERED: LEVAQUIN750 MG PO (13:34)
[2019-09-30] MEDS ORDERED: HYDROCODONE-A1 UDTA2 PO (13:34)
[2019-09-30 16:06] VITALS: BP 150/86
== END 2019-09-30 16:06 | disposition home or self-care (01) ==
LOC: D.ER 10:29
PROVIDERS: Family Medicine
DX: K50.90 Crohn's disease, unspecified, without complications (principal); R10.11 Right upper quadrant pain; R11.2 Nausea with vomiting, unspecified

== ENCOUNTER → 2019-12-31 06:20 | Day surgery (SDC) | payer OTHER ==
[2019-12-29 10:20] LABS: BASOPHILS 0.9 % (0-2); EOSINOPHILS 2.9 % (0-7); HEMOGLOBIN 12.5 g/dL (12-16); LYMPHOCYTES 28.8 % (15-50); MCH 30.9 pg (26.0-34.0); MCHC 32.9 g/dL (31.0-37.0); MCV 94.1 fL (80.0-100.0); MEAN PLATELET VOLUME 11.1 fL (7.4-10.4); MONOCYTES 10.1 % (2-11); NEUTROPHILS 57.3 % (40-80); PLATELET COUNT 257 10x3/uL (130-400); RBC 4.04 10x6/uL (4.00-5.40); RDW 12.1 % (11.5-14.5); WBC 4.4 10x3/uL (4.8-10.8)
[~2019-12-31] VITALS: Ht 170.2 cm; Wt 57.6 kg
[~2019-12-31 06:20] MED LIST changes: +FLAGYL500 MG PO; +HYDROCODONE-A1 UDTA2 PO; +LEVAQUIN750 MG PO; +TORADOL10 MG PO; +ZOFRAN ODT4 MG/UDTAB PO; +ZOFRAN8 MG PO
[2019-12-31 07:20] VITALS: BP 115/77; Ht 170.2 cm; Wt 57.6 kg
[2019-12-31 07:53] LABS: HCG URINE NEGATIVE (NEGATIVE)
--- NOTE | 2019-12-31 14:34 | NUR ---
1330 ALL DC CRITERIA MET. PAIN IS EASING. VISION IS BLURRY. SCOPOLAMINE PATCH REMOVED. PATIENT READY TO GO HOME. ALL DC INSTRUCTIONS GIVEN. TAKEN OUT VIA W/C BY ALEJANDRO PALUMBO RN. NO S/S OF ACUTE DISTRESS NOTED.
--- NOTE | 2020-01-06 12:22 | OP ---
PATIENT NAME: ROMA PATRICIA MEDICAL RECORD: [id number] :86 LOCATION:[facility] ADMISSION DATE: SURGEON: MIS MOELLER MD DATE OF OPERATION: 12/31/2019 PREOPERATIVE DIAGNOSIS: Pelvic pain. POSTOPERATIVE DIAGNOSES: 1. Endometriosis. 2. Uterine synechiae. 3. Cervical stenosis. PROCEDURE: Diagnostic laparoscopy and attempted cannulation of cervix. SURGEON: Mis Moeller MD ESTIMATED BLOOD LOSS: Minimal. INTRAVENOUS FLUIDS: Per anesthesia record. HYSTEROSCOPIC FLUID LOSS: Zero. FINDINGS: 1. Diffuse endometriosis on peritoneal surfaces, ovaries, fallopian tubes and uterus. 2. Copious inflammatory fluid in the posterior cul-de-sac. 3. Adenomyotic appearing uterus. 4. Significant scarring and synechiae post-ablation causing cervical stenosis. SPECIMENS: None. COMPLICATIONS: None apparent. PROCEDURE IN DETAIL: The patient was taken to the operating room where general anesthesia was achieved without difficulty. The patient was then prepped and draped in normal sterile fashion in the dorsal lithotomy position in the [facility]. At this point, the patient was prepped and draped and the bladder was drained of approximately 100 cc of clear yellow urine. A 5-mm incision was made infraumbilically and a 5-mm trocar was used to enter the intraperitoneal space under direct visualization of the laparoscope. The patient was insufflated and a second port was placed approximately 5 cm above the pubic symphysis in the midline under direct visualization of the laparoscope. Survey of the abdomen and pelvis was performed. A copious amount of inflammatory fluid was suctioned from the pelvis and irrigation was performed. Following survey of the abdomen and pelvis, the scope was removed. The patient was desufflated. The trocars were removed and the skin incisions repaired with 3-0 Vicryl in an interrupted fashion. Attention was then turned to the vagina where a Graves speculum was placed into the vagina. The cervix was identified and grasped on its anterior lip with a single tooth tenaculum. I was unable to pass a sound and careful dilation was attempted to approximately 3 cm without success. The hysteroscope was then introduced into the most distal part of the cervix and copious scar tissue was noted presenting cannulation of the cervix and entry into the endometrial canal. The scope and tenaculum were removed. The patient tolerated the procedure well, was transported to the postanesthesia recovery stable without incident. OPERATIVE REPORT [id number] ROMA PATRICIA TRANSINT:[id number] Voice Confirmation ID: [id number] DOCUMENT ID: [id number] MIS MOELLER MD at 1222 CC: [id number] DICTATION DATE: 01/06/20 0810 FURNITURE ASSOCIATE: 01/06/20 0947 [facility] [place] 12/31/19 [address] [place] [address]
== END | disposition home or self-care (01) ==
LOC: D.OPS 06:20 → D.PAN 07:30 → D.OPS 07:30
PROVIDERS: ATTEND Obstetrics & Gynecology
DX: N80.3 Endometriosis of pelvic peritoneum (principal); K21.9 Gastro-esophageal reflux disease without esophagitis

== ENCOUNTER 2021-02-24 17:16 | Emergency (ER) | payer BC ==
[~2021-02-24] VITALS: Ht 170.2 cm; Wt 56.8 kg
[2021-02-24 17:27] VITALS: BP 120/86; Ht 170.2 cm; Wt 56.8 kg
[2021-02-24 17:49] LABS: BASOPHILS 0.4 % (0-2); EOSINOPHILS 1.4 % (0-7); HEMATOCRIT 39.6 % (36.0-48.0); HEMOGLOBIN 13.2 g/dL (12-16); IMMATURE GRANULOCYTES 0.1 % (0-5); LYMPHOCYTE ABS# 2.09 10x3/uL (1.18-3.74); LYMPHOCYTES 21.1 % (15-50); MCH 31.1 pg (26.0-34.0); MCHC 33.3 g/dL (31.0-37.0); MCV 93.4 fL (80.0-100.0); MEAN PLATELET VOLUME 10.6 fL (7.4-10.4); MONOCYTES 8.2 % (2-11); NEUTROPHILS 68.8 % (40-80); PLATELET COUNT 325 10x3/uL (130-400); RBC 4.24 10x6/uL (4.00-5.40); WBC 9.9 10x3/uL (4.8-10.8)
[2021-02-24 17:57] LABS: CALC OSMOLALITY 278 mosm/kg (275-300); CALCIUM 8.9 mg/dL (8.5-10.1); CHLORIDE - SERUM 102 mmol/L (98-107); CREATININE - SERUM 1.1 mg/dL (0.6-1.3); GLUCOSE 93 mg/dL (74-106); POTASSIUM - SERUM 3.6 mmol/L (3.5-5.1); SODIUM 138 mmol/L (136-145); UREA NITROGEN 20 mg/dL (7-18); eGFR NON AFRICAN AMERICAN 60 mL/min (90-120)
[2021-02-24 17:58] LABS: INR 1.13 (0.85-1.17); PROTIME 13.4 SECONDS (11.6-15.0)
[2021-02-24 18:12] LABS: ALBUMIN 3.9 g/dL (3.4-5.0); ALKALINE PHOSPHATASE 62 U/L (30-120); ALT (SGPT) 28 U/L (10-68); BILIRUBIN - TOTAL 0.54 mg/dL (0.2-1.3); CKMB 1.2 U/L (0.0-3.6); CREATINE KINASE 48 UL (21-215); PROTEIN - SERUM 7.6 g/dL (6.4-8.2)
[2021-02-24 18:14] LABS: TROPONIN-I < 0.017 ng/mL (0.000-0.060)
== END 2021-02-25 07:22 | disposition other institution (70) ==
LOC: D.ER 17:16
PROVIDERS: Family Medicine
DX: R06.00 Dyspnea, unspecified (principal)